=== PATIENT | male | born 1985 ===

== ENCOUNTER 2021-09-20 00:01 | Emergency (ER) | payer SELFPAY ==
[2021-09-20 00:03] VITALS: BP 121/77; PULSE 62; RESP 15; TEMP 36.8; O2SAT 99; BMI 18.8
[2021-09-20] MEDS: Lidocaine HCl 2 % MPF 5 ML VIAL SUBCUT ×2 (00:30)
--- NOTE | 2021-09-20 00:41 | ED.WOUNDLAC ---
HPI - Wound/Laceration General Chief Complaint: Wound/Laceration Stated Complaint: lac hand Time Seen by Provider: 09/20/21 00:26 Source: patient Mode of arrival: ambulatory Limitations: no limitations History of Present Illness HPI narrative: 36-year-old male presenting to the ED with complaints of a laceration to his right hand between his index and thumb finger in the webspace that occurred prior to arrival when he went to go grab a glass cup that broken his hand at work. He denies any other symptoms or complaints related to this. He reports that he is unsure if he is up-to-date on tetanus. He denies any paresthesias or thoughts of foreign bodies or any other symptoms complaints or concerns or injuries at this time. Onset (ago): minute(s) ( Prior to arrival) Extremity Location: right: hand ( between the web spaces of the index and the thumb) Place: work Patient tetanus UTD: No Context: accidental Associated symptoms: none Treatments prior to arrival: bandage Related Data Previous Rx's Medication Instructions Recorded acetaminophen 300 mg-codeine 30 mg 1 tab PO Q8H PRN #14 tab 09/20/21 tablet cephalexin 500 mg capsule 500 mg PO Q6H 10 Days #40 cap 09/20/21 Allergies Allergy/AdvReac Type Severity Reaction Status Date / Time No Known Allergies Allergy Unverified 06/23/20 17:26 Review of Systems Review of Systems: Constitutional : No Fever, No Chills, Cardiovascular : No Chest Pain, No SOB Respiratory : No Dyspnea Gastrointestinal : No abdominal pain Musculoskeletal : No Joint Swelling Skin : positive skin laceration, No Foreign bodies, No rash, No surrounding erythema Neuro : No Weakness, No Numbness/tingling Psych : No SI/HI/thoughts of self injury Yes all other systems are reviewed and are negative [facility]LY [facility] Past Medical History Attestation statement: The following information was validated with the patient. Medical History Asthma Surgical History No history of previous surgery Social History Social History Advance Directives: No Advance Directives Information Provided: No Physical Exam Vital Signs: Vital Signs: Last Vital Signs Temp 98.2 F 09/20/21 00:03 Pulse 62 09/20/21 00:03 Resp 15 09/20/21 00:03 BP 121/77 09/20/21 00:03 Pulse Ox 99 09/20/21 00:03 BMI result Body Mass Index 18.8 vital signs have been reviewed as normal and appeared to be correct. Blood pressure normal Heart rate normal. Respiration rate normal. Temperature normal. Oxygen saturation normal. Appearance: Alert. Oriented X3. No acute distress. Head: Normal external exam. Normocephalic. Atraumatic. Eyes: PERRLA. EOMI. Conjunctiva and sclera normal. Eyelids normal. ENT: Pharynx normal. Uvula midline. Moist mucous membranes. Neck: Normal inspection. Neck supple. FROM. CVS: Normal heart rate and rhythm. Respiratory: No respiratory distress. Painless inspiration. Skin: Skin warm and dry. Normal skin color. Normal skin turgor. patient with 3 cm intermediate laceration to the right hand at the webspace between the thumb and the index finger no foreign bodies or active bleeding or surrounding erythema or purulent drainage. No obvious ligamentous or tendon injury. He has full range of motion of all finger/wrist joint. Otherwise no additional rashes/lesions/lacerations noted. Extremities: see above otherwise all other Extremities exhibit normal range of motion and nontender. Neuro: Oriented X 3. No motor deficit. No sensory deficit. Reflexes normal. Normal steady gait. No focal neuro deficits noted. Vascular: + radial pulses/+ 2 distal pedal pulses/+2 dorsalis pedis b/l. Normal cap refill. No cyanosis noted to upper extremity nails and lower extremity toes nails. Course Course Course Narrative: 36-year-old male presenting to the ED with intermediate 3 cm laceration to his right hand between the was patient of the index and thumb finger. Patient now status post laceration repair with 6 sutures placed. Patient tolerated procedure well. No complications. Tetanus updated. Will DC home with symptomatic treatment instructions return if any new or worsening symptoms and to follow up with primary care provider and to return in 10 days for suture removal and to follow up with [facility]. Patient understands agrees with this plan. Procedures Laceration Laceration 1: Site: hand Side (If applicable): right Size (cm): 3 Description: linear Depth: simple, single layer Local Anesthetic: lidocaine 2% Amount of anesthesia used (mL): 7 Pre-repair: wound explored, irrigated extensively and deep structures intact Skin layer closed with: nylon Size (cm): 4-0 Number of sutures: 6 Technique: simple, interrupted Discharge Plan Discharge Clinical Impression: Laceration, Work related injury Patient Disposition: Home, Self-Care Instructions: Laceration (ED), Return to Work Instructions (ED) Prescriptions: New acetaminophen-codeine 300-30 mg tablet 1 tab PO Q8H PRN (Reason: pain) Qty: 14 RF: 0 cephalexin 500 mg capsule 500 mg PO Q6H 10 Days Qty: 40 RF: 0 Referrals: [facility] [Provider Group] - 2 days Briseida Vaca PA [Emergency Midlevel Provider] - 10 days (for suture removal ) Stand Alone Forms: Work/School Release Print Language: [place]
[2021-09-20] MEDS: Diphth,Pertus(ACell),Tet Adult 0.5 ML SYRINGE IM (00:58)
== END 2021-09-20 01:00 | disposition home or self-care (01) ==
PROVIDERS: Emergency Provider Emergency Medicine Emergency Medical Services
DX: S61.411A Laceration without foreign body of right hand, initial encounter (principal); W25.XXXA Contact with sharp glass, initial encounter; Y93.9 Activity, unspecified; Y92.9 Unspecified place or not applicable; Y99.0 Civilian activity done for income or pay
CPT/HCPCS: 12002; 90471; 90715; 99284

== ENCOUNTER 2021-10-11 13:46 | Emergency (ER) | payer OTHER, SELFPAY ==
[2021-10-11 17:15] VITALS: BP 121/63; PULSE 80; RESP 18; TEMP 36.9; O2SAT 97; BMI 20.3
[2021-10-11 17:48] LABS: COVID-19 Test Negative (Negative)
--- NOTE | 2021-10-11 17:56 | ED.GENADULT ---
HPI - General Adult General Chief complaint: General Medical Stated complaint: stitch removal Time Seen by Provider: 10/11/21 17:44 Source: patient Mode of arrival: ambulatory Limitations: no limitations History of Present Illness HPI narrative: 36-year-old male presenting for suture removal. He had 6 sutures placed in the webspace of his right thumb and index finger on 09/20. He reports ongoing pain at the area but no redness, drainage. He also reports nasal discharge and congestion as well as some generalized malaise. He would like a COVID test. He reports a lot of the same numbers are feeling tired over work in themselves. He denies any shortness of breath or fevers. Not back MD complaint: Suture removal in COVID test Radiation: non-radiation Severity: mild Quality: aching Pain Consistency: intermittent Relieving factors: none Exacerbating factors: none Associated symptoms: denies other symptoms Treatments prior to arrival: none Related Data Previous Rx's Medication Instructions Recorded acetaminophen 300 mg-codeine 30 mg 1 tab PO Q8H PRN #14 tab 09/20/21 tablet cephalexin 500 mg capsule 500 mg PO Q6H 10 Days #40 cap 09/20/21 Allergies Allergy/AdvReac Type Severity Reaction Status Date / Time No Known Allergies Allergy Verified 10/11/21 17:15 Review of Systems Review of Systems: Constitutional: No Fever, No Chills ENT/Mouth: No sore throat, No Rhinorrhea, No Swallowing Difficulty, +nasal congestion Cardiovascular: No Chest Pain, No SOB Respiratory: No Cough, No Sputum Gastrointestinal: No Nausea, No Vomiting, No abdominal Pain Genitourinary: No Dysuria, No Urinary Frequency, No Hematuria Musculoskeletal: No joint pain, No Myalgias Skin: + Skin Lesions, No rash Neuro: No Headache Heme/Lymph: No Lymphadenopathy PMFSH Past Medical History Medical History Asthma Surgical History No history of previous surgery Social History Social History Advance Directives: No Advance Directives Information Provided: No Physical Exam Vital Signs: Vital Signs: Last Vital Signs Temp 98.4 F 10/11/21 17:15 Pulse 80 10/11/21 17:15 Resp 18 10/11/21 17:15 BP 121/63 10/11/21 17:15 Pulse Ox 97 10/11/21 17:15 BMI result Body Mass Index 20.3 Appearance: Alert. Oriented X3. No acute distress. HEENT: normal inspection CVS: Normal heart rate and rhythm. Pulses normal. Respiratory: No respiratory distress. Skin: Skin warm and dry. Normal skin color. Normal skin turgor. No rashes. Extremities: Right hand with a well-healing wound between the webspace of the thumb and the index finger. There is some skin overgrowth over the sutures with no signs of infection. No surrounding erythema or drainage. normal ROM all the fingers. NV intact distally. Neuro: Oriented X 3. Grossly normal, nonfocal. Course Course Course Narrative: 36-year-old male here for suture removal and COVID test. His sutures have been placed for over 3 weeks. They were successfully removed with suture removal kit. No evidence of infection. His rapid COVID is negative. Patient counseled to get retested in the next few days if he is still having symptoms and isolate at home. Stable for discharge home. Medical Decision Making Lab Data Labs: Lab Results 10/11/21 Range/Units 17:24 COVID-19 ([facility]IA) Negative (Negative) COVID-19 Clin Com See Note Discharge Plan Discharge Clinical Impression: Encounter for removal of sutures Patient Disposition: Home, Self-Care Instructions: Stitches Removal (ED) Prescriptions: No Action acetaminophen-codeine 300-30 mg tablet 1 tab PO Q8H PRN (Reason: pain) Qty: 14 RF: 0 cephalexin 500 mg capsule 500 mg PO Q6H 10 Days Qty: 40 RF: 0 Interventions: ED Discharge Assessment Last Done: 10/11/21 18:04
== END 2021-10-11 19:56 | disposition home or self-care (01) ==
PROVIDERS: Emergency Provider Emergency Medicine Emergency Medical Services
DX: Z48.02 Encounter for removal of sutures (principal); Z20.822 Contact with and (suspected) exposure to COVID-19
CPT/HCPCS: 87635; 99283

== ENCOUNTER 2023-03-07 19:17 | Emergency (ER) | payer BC, SELFPAY ==
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
[2023-03-07 20:23] VITALS: BP 115/75; PULSE 73; RESP 16; TEMP 36.9; O2SAT 97; BMI 17.2
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
== END 2023-03-07 21:58 | disposition home or self-care (01) ==
PROVIDERS: Emergency Provider Emergency Medicine
DX: S93.401A Sprain of unspecified ligament of right ankle, initial encounter (principal); M54.50 Low back pain, unspecified; M25.571 Pain in right ankle and joints of right foot; V29.401A Electric (assisted) bicycle driver injured in collision with unspecified motor vehicles in traffic accident, initial encounter; Y93.9 Activity, unspecified; Y92.410 Unspecified street and highway as the place of occurrence of the external cause; Y99.9 Unspecified external cause status; Z79.899 Other long term (current) drug therapy
CPT/HCPCS: 72100; 73610; 73630; 99283

== ENCOUNTER 2023-08-14 15:13 | Emergency (ER) | payer BC, SELFPAY ==
[2023-08-14 15:25] VITALS: BP 127/75; PULSE 101; RESP 20; TEMP 37.2; O2SAT 100; BMI 17.2
[2023-08-14 16:21] LABS: Influenza A PCR NEGATIVE (Negative); Influenza B PCR NEGATIVE (Negative); Resp Syncy Virus RNA Qual PCR NEGATIVE (Negative); SARS COV2 PCR INHOUSE POSITIVE (Negative)
[2023-08-14 17:55] VITALS: BP 111/79; PULSE 90; RESP 18; TEMP 38.2; O2SAT 98
--- NOTE | 2023-08-14 18:02 | ED.URI ---
HPI - URI/Sore Throat General Chief Complaint: Upper Respiratory Symptoms Stated Complaint: headache, fever Time Seen by Provider: 08/14/23 18:15 Source: patient and RN notes reviewed Mode of arrival: ambulatory Limitations: no limitations History of Present Illness HPI Narrative: This is a 38-year-old male presenting to the emergency department for evaluation of headache, fevers and chills x3 days. Patient has no sore throat, ear pain, chest pain or shortness of breath. No abdominal pain, nausea, vomiting or diarrhea. He has been taking TheraFlu with some relief. He has been eating out recently, no known sick contacts. No other complaints or concerns at this time. MD elicited complaint: fever, cough, rhinorrhea and nasal congestion Onset (ago): day(s) Consistency: constant Description of mucous: clear Able to tolerate fluids by mouth: Yes Exacerbating factors: nothing Relieving factors: nothing Context: sick contacts Associated symptoms: denies other symptoms Treatments prior to arrival: none Related Data Previous Rx's Medication Instructions Recorded acetaminophen 300 mg-codeine 30 mg 1 tab PO Q8H PRN pain #14 tabs 09/20/21 tablet cephalexin 500 mg capsule 500 mg PO Q6H 10 days #40 caps 09/20/21 acetaminophen 500 mg tablet 500 mg PO Q6H PRN pain #30 tabs 08/14/23 (Tylenol Extra Strength) ibuprofen 600 mg tablet 600 mg PO Q6H PRN fever or pain 08/14/23 #45 tabs Allergies Allergy/AdvReac Type Severity Reaction Status Date / Time No Known Allergies Allergy Verified 03/07/23 20:29 Review of Systems Review of Systems: Yes all other systems are reviewed and are negative Constitutional: Constitutional: Reports as per [facility] Past Medical History Attestation statement: The following information was validated with the patient. Medical History Asthma Surgical History No history of previous surgery Physical Exam Vital Signs: Vital Signs: Last Vital Signs Temp 100.7 F H 08/14/23 17:55 Pulse 90 08/14/23 17:55 Resp 18 08/14/23 17:55 BP 111/79 08/14/23 17:55 Pulse Ox 98 08/14/23 17:55 O2 Del Method Room Air 08/14/23 17:55 BMI result Body Mass Index 17.2 Const: General: cooperative, comfortable and no acute distress Orientation/consciousness: patient oriented x3 Limitations: no limitations HEENT: Head: Yes normal to inspection, Yes normocephalic and Yes atraumatic Ears: hearing grossly normal bilaterally General nose exam: Normal external nose present Face and sinus: Yes normal facial exam Mouth: Normal oral and palatal mucosa present, oropharynx normal and moist mucous membranes Throat: Yes posterior oropharynx normal Eyes: General: appearance normal, both eyes and all related structures Eyelids: Yes eyelids normal Conjunctivae: conjunctivae normal Sclerae: sclerae normal Pupils: Equal, round and reactive pupils present EOM: EOMs intact bilaterally Neck: Neck: Yes normal visual inspection, Yes full ROM and Yes no lymphadenopathy Lymphatic: no lymphadenopathy noted Chest: Chest palpation & inspection: normal inspection of the chest Resp: Effort & Inspection: normal respiratory effort and able to speak in complete sentences Auscultation: clear to auscultation bilaterally, no crackles, no rales, no rhonchi and no wheezes Cardio: Rate: regular rate Rhythm: regular rhythm Heart sounds: S1 normal heart sound present and S2 normal heart sound present GI: Inspection: Yes normal to inspection Skin: General skin exam: no rashes or lesions noted Trauma: no lacerations or abrasions Wounds: no wounds Neuro: General: patient oriented x3 and moves all extremities Cranial nerves: Yes Equal, round and reactive pupils present Extrem: General: Yes normal to inspection Right upper extremity: normal to inspection Left upper extremity: normal to inspection Right lower extremity: normal to inspection Left lower extremity: normal to inspection Medications Administered Discontinued Medications Generic Name Dose Route Start Last Admin Trade Name Freq PRN Reason Stop Dose Admin Acetaminophen 975 mg 08/14/23 18:10 08/14/23 18:13 Acetaminophen 325 Mg Tablet PO 08/14/23 18:11 975 mg ONCE ONE Administration Medical Decision Making Differential Diagnosis Differential Diagnoses: The differential diagnosis associated with the presentation includes Admission/Observation Consideration of admission/observation: Escalation of care including admission/observation considered Lab Data MDM Lab Attestation statement: I reviewed the patient's lab results. Labs: Lab Results 08/14/23 Range/Units 15:38 Influenza Type A (PCR) NEGATIVE (Negative) Influenza Type B (PCR) NEGATIVE (Negative) RSV RNA Qual (PCR) NEGATIVE (Negative) SARS-CoV-2 RNA (RT-PCR) POSITIVE A (Negative) Radiology Impression Discussion of test interpretation with radiology: I have reviewed the radiologist's reading. External Record Review External record reviewed: Inpatient record, Office record, Outpatient record, Prior outpatient labs, Prior outpatient radiology, Primary care record and Outside ED record Discharge Plan Discharge Clinical Impression: COVID-19 Patient Disposition: Home, Self-Care Additional Instructions: You tested positive for COVID today. Please drink plenty of fluids get plenty of rest. Take ibuprofen and/or Tylenol as needed for pain, fevers and symptoms Any new or worsening symptoms occur, including chest pain or shortness of breath, please return for re-evaluation. Prescriptions: New ibuprofen 600 mg tablet 600 mg PO Q6H PRN (Reason: fever or pain) Qty: 45 0RF acetaminophen [Tylenol Extra Strength] 500 mg tablet 500 mg PO Q6H PRN (Reason: pain) Qty: 30 0RF No Action acetaminophen-codeine 300-30 mg tablet 1 tab PO Q8H PRN (Reason: pain) Qty: 14 0RF cephalexin 500 mg capsule 500 mg PO Q6H 10 Days Qty: 40 0RF Stand Alone Forms: Work/School Release
[2023-08-14] MEDS: Acetaminophen 325 MG TABLET 975 MG PO (18:13)
== END 2023-08-14 18:25 | disposition home or self-care (01) ==
LOC: HO.ED 18:24
PROVIDERS: Emergency Provider Emergency Medicine
DX: U07.1 COVID-19 (principal); R51.9 Headache, unspecified; R50.9 Fever, unspecified; Z79.899 Other long term (current) drug therapy
CPT/HCPCS: 0241U; 99283

== ENCOUNTER 2024-01-03 19:53 | Emergency (ER) | payer BC, SELFPAY ==
--- NOTE | ~2024-01-03 | XR_ITS ---
EXAMINATION: XR ANKLE, RIGHT CLINICAL INFORMATION: Pain. COMPARISON: Radiograph right ankle 03/07/2023. TECHNIQUE: AP, lateral, and mortise views of the right ankle. FINDINGS: New avulsion fracture along the inferior and lateral surface of the calcaneus best visualized on the oblique view with surrounding soft tissue swelling. No additional fractures. Ankle mortise is maintained. XR/XR ankle RT 2V IMPRESSION: New avulsion fracture along the inferior and lateral surface of the calcaneus.
[2024-01-03 20:03] VITALS: BP 142/86; PULSE 90; O2SAT 99
[2024-01-03 21:07] VITALS: BP 128/80; PULSE 84; RESP 18; TEMP 37.2; O2SAT 98; BMI 20.4
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
--- NOTE | 2024-01-03 23:56 | PC.NURSE ---
aldair dykes at bedside applying splint to pt right ankle
[2024-01-04 00:03] VITALS: BP 134/64; PULSE 93; RESP 15; TEMP 36.7; O2SAT 96
== END 2024-01-04 00:10 | disposition home or self-care (01) ==
PROVIDERS: Emergency Provider Internal Medicine
DX: S92.001A Unspecified fracture of right calcaneus, initial encounter for closed fracture (principal); V28.49XA Other motorcycle driver injured in noncollision transport accident in traffic accident, initial encounter; Y93.9 Activity, unspecified; Y92.410 Unspecified street and highway as the place of occurrence of the external cause; Y99.9 Unspecified external cause status; M79.671 Pain in right foot
CPT/HCPCS: 73600; 99283; 99284

== ENCOUNTER 2024-01-10 09:47 | Outpatient (AMB) | payer BC, SELFPAY ==
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
[2024-01-10 10:02] VITALS: BMI 20.4
== END 2024-01-10 11:22 | disposition home or self-care (01) ==
PROVIDERS: Visit Provider Physician Assistant
DX: S92.001A Unspecified fracture of right calcaneus, initial encounter for closed fracture (principal)
CPT/HCPCS: 99203

== ENCOUNTER → 2024-01-10 09:47 | Outpatient (BNVA) | payer BC, SELFPAY | PROVIDERS: Visit Provider Physician Assistant ==

== ENCOUNTER 2024-02-03 07:29 | Outpatient (REF) | payer OTHER, BC, SELFPAY ==
--- NOTE | ~2024-02-03 | CT_ITS ---
EXAMINATION: CT FOOT WITHOUT CONTRAST, RIGHT CLINICAL INFORMATION: Calcaneal fracture. COMPARISON: Most recent right ankle radiographs dated 01/03/2024. TECHNIQUE: Contiguous axial CT images of the right foot were obtained without contrast. Multiplanar reformats were provided and reviewed. This CT examination was performed using dose optimization techniques as appropriate, variously including the following: *Automated exposure control *Adjustment of mA and/or kV according to patient size (this includes techniques or standardized protocols for targeted exams where dose is matched to indication/reason for exam; i.e. extremities or head) *Use of iterative reconstruction technique DLP: 142 mGy-cm FINDINGS: There is a mildly displaced fracture through the posterolateral calcaneal tubercle with the resultant fracture fragment measuring approximately 0.8 x 0.7 cm (AP by ML). Cortical step-off measures up to 0.4 cm in greatest dimension. Findings correspond to the prior radiographs. No additional fracture or dislocation. The ankle mortise is maintained. No joint space narrowing or marginal osteophytes. No talar osteochondral lesion. No abnormal soft tissue mass or fluid collection. Subcutaneous edema along the posterolateral aspect of the calcaneus without organized fluid collection. The visualized flexor and extensor tendons are grossly intact; however, evaluation is limited on CT examination. CT/CT foot RT wo IV con IMPRESSION: 1. Mildly displaced fracture through the posterolateral calcaneal tubercle with a resultant fracture fragment measuring up to 0.8 cm. Cortical step-off measures up to 0.4 cm. Findings correspond to the prior radiographs. 2. No additional fracture or dislocation. 3. Subcutaneous edema along the posterolateral aspect of the calcaneus without organized fluid collection.
== END 2024-02-03 07:30 | disposition home or self-care (01) ==
LOC: HO.CT 07:29
PROVIDERS: Visit Provider Physician Assistant
DX: S92.001A Unspecified fracture of right calcaneus, initial encounter for closed fracture (principal)
CPT/HCPCS: 73700

== ENCOUNTER 2024-02-10 12:29 | Outpatient (REF) | payer OTHER, BC, SELFPAY ==
--- NOTE | ~2024-02-10 | XR_ITS ---
EXAMINATION: XR CALCANEUS, RIGHT CLINICAL INFORMATION: Fracture of right calcaneus. COMPARISON: X-rays of the right ankle December 2023. CT scan right foot January 2024. TECHNIQUE: Lateral and axial views of the right calcaneus were obtained. FINDINGS: The fracture of the of the lateral plantar aspect the calcaneal tuberosity is barely if at all conspicuous. There is some subtle cortical irregularity on the axial view of the calcaneus. The remaining bones joints soft tissues are unremarkable. XR/XR calcaneus RT min 2V IMPRESSION: 1. Fracture of the calcaneal tuberosity barely conspicuous on the current x-ray. This is likely due to projection rather than interval healing of the fracture given the short time frame between the CT and this x-ray.
== END 2024-02-10 12:30 | disposition home or self-care (01) ==
LOC: HO.HOSX 12:29
PROVIDERS: Visit Provider Physician Assistant
DX: S92.001D Unspecified fracture of right calcaneus, subsequent encounter for fracture with routine healing (principal)
CPT/HCPCS: 73650

== ENCOUNTER 2024-02-10 12:56 | Outpatient (AMB) | payer BC, SELFPAY ==
[2024-02-10 13:05] VITALS: BMI 20.4
--- NOTE | 2024-02-10 13:05 | A.OFFVIS_ITS ---
Vital Signs 02/10/24 13:05 Height 5 ft 7 in Weight 130 lb BMI 20.4 Intake Visit Reasons: ov-right calcaneal avulsion fracture 12/30/23 Intake Note: Tyler is a 39 year old male, who presents today for CT scan review and follow up on right calcaneal avulsion fracture, 12/30/23. Patient reports he only experiences pain when he lays down, 2-3 on a 0-10 pain scale. Patient shared he is very scared to put weight on his foot even when wearing the boot. Patient was visibly limping today. Production Support Specialist Required: No Accompanied by: Self / Same As Patient Allergies No Known Allergies Allergy (Verified 02/10/24 13:06) HPI HPI ov-right calcaneal avulsion fracture 12/30/23: Details: 39-year-old male who returns to the office today for a follow-up of right calcaneus fracture, 12/30/23. He continues to have pain in his ankle which is aggravated at night. He is wearing the boot as instructed. He has no other concerns today. [facility] Medical History Asthma Surgical History No history of previous surgery Review of Systems Const All systems reviewed & are unremarkable except as noted in HPI and below Physical Exam Vital Signs: BMI result Body Mass Index 20.4 Const General: cooperative, healthy appearing, comfortable, no acute distress, well developed and alert Orientation/consciousness: patient oriented x3 HEENT Head: Yes normal to inspection, Yes normocephalic and Yes atraumatic Eyes General: appearance normal, both eyes and all related structures Resp Effort & Inspection: normal respiratory effort and able to speak in complete sentences Cardio Rate: regular rate Peripheral pulses: Peripheral pulses 2+ throughout GI Palpation (GI): Soft to palpation Skin Lesions: no lesions Rashes: no rashes Neuro General: patient oriented x3 Extrem Other: Right foot: Normal to inspection. No open wound, no foul odor, or drainage. He has no tenderness over the medial aspect of calcaneus and there is no bruising or swelling along the foot. No pain over the malleolus or lateral aspect of the foot. NVI. Results Reviewed Results Reviewed: CT foot RT wo IV con IMPRESSION: 1. Mildly displaced fracture through the posterolateral calcaneal tubercle with a resultant fracture fragment measuring up to 0.8 cm. Cortical step-off measures up to 0.4 cm. Findings correspond to the prior radiographs. 2. No additional fracture or dislocation. 3. Subcutaneous edema along the posterolateral aspect of the calcaneus without organized fluid collection. Assessment & Plan Assessment & Plan (1) Calcaneus fracture, right: Code(s): S92.001A - Unspecified fracture of right calcaneus, initial encounter for closed fracture Category: Medical Qualifiers: Encounter type: subsequent encounter Calcaneus location: unspecified portion of calcaneus Fracture type: closed Fracture alignment: nondisplaced Fracture healing: with routine healing Qualified Code(s): S92.001D - Unspecified fracture of right calcaneus, subsequent encounter for fracture with routine healing Plan He can begin transitioning to a regular street shoe as long as he is pain free. We did try it in the office where he was standing barefoot and had no pain. He will also begin a course of physical therapy to work on ROM, gentle strengthening, gait training and proprioceptive training. 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 I would like to see him back in 6 weeks with new x-rays, sooner if needed. Orders: Orders XR calcaneus RT min 2V Today S92.001A - Unspecified fracture of right calcaneus, initial encounter for closed fracture PT Evaluation and Treatment Today S92.001A - Unspecified fracture of right calcaneus, initial encounter for closed fracture Patient Instructions: Scribed for Darryl Molina PA-C, by Lucien Wing manager medical affairs, on 02/10/2024 at 1:00 PM EST. IDarryl PA-C, have personally reviewed and agree with the information entered by the scribe. Coding Level of Care Code Global (74561) Diagnoses Closed nondisplaced fracture of right calcaneus with routine healing, unspecified portion of calcaneus, subsequent encounter S92.001D Encounter type: subsequent encounter Calcaneus location: unspecified portion of calcaneus Fracture type: closed Fracture alignment: nondisplaced Fracture healing: with routine healing
== END 2024-02-10 13:45 | disposition home or self-care (01) ==
PROVIDERS: Visit Provider Physician Assistant
DX: S92.001D Unspecified fracture of right calcaneus, subsequent encounter for fracture with routine healing (principal)
CPT/HCPCS: 99213

== ENCOUNTER 2024-03-23 12:58 | Outpatient (REF) | payer BC, SELFPAY ==
--- NOTE | ~2024-03-23 | XR_ITS ---
EXAMINATION: XR CALCANEUS, RIGHT CLINICAL INFORMATION: Calcaneal fracture COMPARISON: Radiographs 02/10/2024. CT 02/03/2024. TECHNIQUE: Lateral and axial views of the right calcaneus were obtained. FINDINGS: Previously demonstrated fractures of the lateral process of the calcaneal tuberosity and the anteriormost aspect at the calcaneocuboid joint are no longer apparent. XR/XR calcaneus RT min 2V IMPRESSION: Previously demonstrated fractures of the lateral process of the calcaneal tuberosity and anteriormost aspect at the calcaneocuboid joint are no longer apparent.
== END 2024-03-23 12:59 | disposition home or self-care (01) ==
LOC: HO.HOSX 12:58
PROVIDERS: Visit Provider Physician Assistant
DX: S92.001A Unspecified fracture of right calcaneus, initial encounter for closed fracture (principal)
CPT/HCPCS: 73650

== ENCOUNTER 2024-03-23 13:37 | Outpatient (AMB) | payer BC, SELFPAY ==
--- NOTE | 2024-03-23 13:52 | MHC.OFFVIS ---
Vital Signs 03/23/24 13:59 Height 5 ft 7 in Weight 130 lb BMI 20.4 Intake Visit Reasons: OV-f/u Rt calcaneus fx w xrays Intake Note: Michele 39 year old male, who presents today for a follow up on his right calcaneal avulsion fracture, DOI 12/30/23. Patient reports he is doing, he continues to work with PT. States improvement since injury however he is nervous that he will re-injure. Allergies No Known Allergies Allergy (Verified 03/23/24 13:58) HPI HPI OV-f/u Rt calcaneus fx w xrays: Details: 39-year-old male who returns to the office today for a follow-up of right calcaneus fracture, 12/30/23. He states he has improvement in his injury and denies any pain however he is nervous that he will reinjure and therefore not ambulating. He continues to work on physical therapy as instructed. He has no other concerns today. [facility] Medical History Asthma Surgical History No history of previous surgery Review of Systems Const All systems reviewed & are unremarkable except as noted in HPI and below Physical Exam Vital Signs: BMI result Body Mass Index 20.4 Const General: cooperative, healthy appearing, comfortable, no acute distress, well developed and alert Orientation/consciousness: patient oriented x3 HEENT Head: Yes normal to inspection, Yes normocephalic and Yes atraumatic Eyes General: appearance normal, both eyes and all related structures Resp Effort & Inspection: normal respiratory effort and able to speak in complete sentences Cardio Rate: regular rate Peripheral pulses: Peripheral pulses 2+ throughout GI Palpation (GI): Soft to palpation Skin Lesions: no lesions Rashes: no rashes Neuro General: patient oriented x3 Extrem Other: Right foot: Normal to inspection. He has no tenderness over the medial aspect of calcaneus and there is no bruising or swelling along the foot. No pain over the malleolus or lateral aspect of the foot. NVI. Results Reviewed Results Reviewed: Xrays were obtained in the office today and personally reviewed by me of the right calcanes show healed fracture Assessment & Plan Assessment & Plan (1) Calcaneus fracture, right: Code(s): S92.001A - Unspecified fracture of right calcaneus, initial encounter for closed fracture Category: Medical Qualifiers: Calcaneus location: unspecified portion of calcaneus Encounter type: subsequent encounter Fracture alignment: nondisplaced Fracture healing: with routine healing Fracture type: closed Qualified Code(s): S92.001D - Unspecified fracture of right calcaneus, subsequent encounter for fracture with routine healing Plan He will increase activities as tolerated. I did give him a lace up aso to help with support while returning to work. I also gave him a latter stating I have been treating him since January 09 until today, March 23 and he has been out of work since his injury. He will work on physical therapy and increase activities as tolerated. He will see me back as needed. Orders: Orders XR calcaneus RT min 2V Today S92.001A - Unspecified fracture of right calcaneus, initial encounter for closed fracture Patient Instructions: Scribed for Darryl Molina PA-C, by Lucien Wing medical assisting program director, on 03/23/2024 at 1:30 PM EST.? I, Darryl Molina PA-C, have personally reviewed and agree with the information entered by the scribe. Coding Level of Care Code Global (78693) Diagnoses Closed nondisplaced fracture of right calcaneus with routine healing, unspecified portion of calcaneus, subsequent encounter S92.001D Calcaneus location: unspecified portion of calcaneus Encounter type: subsequent encounter Fracture alignment: nondisplaced Fracture healing: with routine healing Fracture type: closed
[2024-03-23 13:59] VITALS: BMI 20.4
== END 2024-03-23 15:09 | disposition home or self-care (01) ==
PROVIDERS: Visit Provider Physician Assistant
DX: S92.001D Unspecified fracture of right calcaneus, subsequent encounter for fracture with routine healing (principal)
CPT/HCPCS: 99213

== ENCOUNTER 2024-04-15 10:00 | Outpatient (RCR) | payer OTHER, BC, SELFPAY ==
--- NOTE | 2024-02-25 13:57 | MHC.PT.EP ---
[facility] [place] Office [place] Office [place] Office [address] [phone] F: [phone] F: [phone] F: [phone] F: [phone] Physical Therapy Plan of Care Date of Evaluation: 02/25/24 Date of Surgery: Diagnosis: RIGHT ankle calcaneal fracture Assessment: Patient is a pleasant 39 y.o. male who is referred to PT by Darryl Molina PA-C with Dx of RIGHT calcaneal fracture. He did not require surgery., was placed in a tall walking boot. Patient impairments include pain, healing incision sites, limited ROM, weakness, antalgic gait, impaired balance. Patient current functional limitations are walking, running, standing, bending, balance, stair use. Patient will benefit from skilled PT to address aforementioned impairments and functional limitations to meet established goals. Frequency and Duration: The patient will be seen 2x/week for 4 weeks Short Term Goals: 2 weeks Patient demonstrates consistency and independence with HEP to self manage symptoms. Half-Way Goals: 4 weeks Patient presents with increased ankle DF 5 degrees to be able to restore ambulation rocker without antalgic gait with regular shoe. Patient presents wht increased ankle inv/ev 4+/5 to be able to squat without pain or compensations for work tasks. Treatment Plan: Modalities to reduce pain, spasms and effusion. Manual therapy to restore motion and function. Therapeutic exercise to improve strength and flexibility. Neuromuscular re-education for posture and balance. Therapeutic activities to return to functional activities of daily living. Electronically signed by: Jayden Lomeli, PT, DPT Please sign and return to therapist. Thank you for your referral.
--- NOTE | 2024-06-02 09:48 | MHC.PT.DC ---
[facility] [place] Office [place] Office [place] Office [address] Marlon Helm [address] [facility] [place] [phone] F: [phone] F: [phone] F: [phone] F: [phone] Physical Therapy Discharge Report Diagnosis: RIGHT ankle calcaneal fracture Date of Surgery: Date of Evaluation: 02/25/24 Date of Discharge: 06/02/24 Treatments to Date: 12 Cancellations to Date: 1 No Shows to Date: 1 Discharge Status: Independent with HEP Patient Elected to Stop Discharge Summary: Tyler did well with PT and was returning to work. He last PT session was 04/15/24 and the assessment reads, Tyler presents with normalized gait pattern today, heel strike occurring for initial contact and weight shifting appropriately. He does well with advancement of exercises on uneven surfaces without pain complaints in foot or ankle. He ceased attending PT on his own accord after that visit and is therefore discharged from PT. Electronically signed by: Jayden Lomeli, PT, DPT Please sign and return to therapist. Thank you for your referral.
== END 2024-06-02 09:48 | disposition home or self-care (01) ==
LOC: HO.PT 10:00
PROVIDERS: Visit Provider Physician Assistant
DX: S92.001D Unspecified fracture of right calcaneus, subsequent encounter for fracture with routine healing (principal)
CPT/HCPCS: 97110; 97112; 97116; 97161; 97530

== ENCOUNTER 2025-10-01 15:52 | Emergency (ER) | payer BC, SELFPAY ==
[2025-10-01 16:29] VITALS: BP 129/70; PULSE 100; RESP 18; TEMP 37.1; O2SAT 99; BMI 21.9
--- OUTSIDE RECORDS SUMMARY | 2025-10-01 16:51 | XMS_ITS | Clinical Summary ---
Author Organization [employer] Address [address] [place] [address] Care Team Providers Care Electron Gun Inspector Name Role Phone Unavailable Primary Care Provider Unavailabl e Allergies No known active allergies Medications No known medications Active Problems No known active problems Encounters Date Type Department Care Team Description 08/27/2025 Telephone [facility] [address] [place] [address] Elli Sandoval, DDS 08/02/2025 2:15 PM EDT Office Visit [facility] [address] [place] [address] Janay An Subgingival dental calculus (Primary Dx); Supragingival dental calculus; Dental plaque; Periodontal disease; Encounter for dental examination 07/29/2025 1:00 PM EDT Office Visit [facility] [address] [place] [address] Elli Sandoval, DDS Dental calculus (Primary Dx); Gingival swelling from Last 3 Months Social History Tobacco Use Types Packs/Day Years Used Date Smoking Tobacco: Never Assessed Sex and Gender Information Value Date Recorded Sex Assigned at Male 08/06/2022 10:15 AM EDT Legal Sex Male 10:15 AM EDT Gender Identity Male 07/29/2025 8:37 AM EDT Sexual Orientation Straight 07/29/2025 8: 37 AM EDT Last Filed Vital Signs Vital Sign Reading Time Taken Comments Blood Pressure 139/83 08/02/2025 2:16 PM EDT Pulse - - Temperature - - Respiratory Rate - - Oxygen Saturation - - Inhaled Oxygen Concentration - - Weight - - Height - - Body Mass Index - - Plan of Treatment Health Maintenance Due Date Last Done Comments Depression Screening 1985 HIV Screening 1985 Lipid Panel 1985 SDOH Screening 1985 Disability Screening 1985 Alcohol/Substance Use Screening 1997 Tobacco Screening 1997 Family Planning (PISQ) 01/03/2000 HPV Vaccines (1 - Male 3-dos e series) 01/03/2000 Hepatitis C Screening 2003 Hepatitis B Vaccines (2 of 3 - 19+ 3-dose series) 09/04/2006 08/07/2006 Dental Prophylaxis 10/21/2011 04/19/2011 COVID-19 Vaccine (3 - 2024-2 6 season) 2025 04/21/2021, 03/22/2021 Influenza Vaccine (#1) 2025 10/25/2011 Dental Oral Exam 02/01/2026 08/02/2025 Dental X-Ray: Bitewings 08/03/2026 08/02/20 25, 04/19/2011 Dental X-Ray: Full Mouth 08/03/2028 025, 04/19/2011 DTaP/Tdap/Td Vaccines (2 - T d or Tdap) 09/20/2031 09/20/2021 Zoster Vaccines (1 of 2) 2035 RSV Patients and Patients Aged 60 years or older (1 - 1-dose 75+ series) 01/03/2060 HIB Vaccines Aged Out No longer eligi ble based on patient's age to complete this topic Hepatitis A Vaccines Aged Out No long er eligible based on patient's age to complete this topic IPV Vaccines Aged Out No longer eligi ble based on patient's age to complete this topic Meningococcal B Vaccine Aged Out No l onger eligible based on patient's age to complete this topic Meningococcal Vaccine Aged Out No leah fredy eligible based on patient's age to complete this topic Pneumococcal Vaccine: Pediatrics (0 to 5 Years) and At-Risk Patients (6 to 49) Years Aged Out No longer eligible b ased on patient's age to complete this topic RSV under 20 months Aged Out No longe r eligible based on patient's age to complete this topic Rotavirus Vaccines Aged Out No longer eligible based on patient's age to complete this topic Procedures Procedure Name Priority Date/Time Associated Diagnosis Comments 17 O AMALGAM FILLING Routine 08/27/2025 12:00 AM EST 21 O AMALGAM FILLING Routine 08/27/2025 12:00 AM EST 20 DO AMALGAM FILLING Routine 08/27/2025 12:00 AM EST 19 MOD AMALGAM FILLING Routine 5 12:00 AM EST 18 O AMALGAM FILLING Routine 08/27/2025 12:00 AM EST 14 MOL AMALGAM FILLING Routine 5 12:00 AM EST 13 MOD AMALGAM FILLING Routine 5 12:00 AM EST 12 MOD AMALGAM FILLING Routine 5 12:00 AM EST COMPREHENSIVE ORAL EVALUATION - NEW OR ESTABLISHED PATIENT Routine 08/02/2025 2:15 PM EDT Subgingival dental calculus Supragingival dental calculus Dental plaque Periodontal disease Encounter for dental examination FULL MOUTH DEBRIDEMENT TO ENABLE A COMPREHENSIVE ORAL EVALUATION AND DIAGNOSIS ON A SUBSEQUENT VISIT Routine 08/02/2025 2:15 PM EDT Subgingival dental calculus Supragingival dental calculus Dental plaque Periodontal disease INTRAORAL - COMPLETE SERIES OF RADIOGRAPHIC IMAGES Routine 08/02/2025 2:15 PM EDT CASE PRESENTATION, DETAILED AND EXTENSIVE TREATMENT PLANNING Routine 08/02/2025 2:15 PM EDT ORAL HYGIENE INSTRUCTIONS Routine 2024 2:15 PM EDT Subgingival dental calculus Supragingival dental calculus Dental plaque Periodontal disease SCALING IN PRESENCE OF MOD-SEVERE GING INFL - FULL MOUTH, AFTER ORAL EVAL Routine 08/02/2025 2:15 PM EDT Subgingival dental calculus Supragingival dental calculus Dental plaque Periodontal disease INTRAORAL - PERIAPICAL FIRST RADIOGRAPHIC IMAGE Routine 07/29/2025 1:00 PM EDT Dental calculus Gingival swelling LIMITED ORAL EVALUATION - PROBLEM FOCUSED Routine 07/29/2025 1:00 PM EDT Dental calculus Gingival swelling PROPHYLAXIS - ADULT Routine 04/19/2011 1 2:00 AM EDT from Last 3 Months or Most Recently Relevant to Health Maintenance Insurance [facility]
--- NOTE | 2025-10-01 16:57 | ED.DENTAL ---
HPI - Dental/Oral General Chief complaint: Dental/Oral Stated complaint: TOOTH PAIN Time Seen by Provider: 10/01/25 16:57 Source: patient, RN notes reviewed and old records reviewed Mode of arrival: ambulatory History of Present Illness ED Provider: Janis Guzmán PA-C HPI Narrative: 40-year-old male with no significant past medical history presenting to the ED complaining of right upper dental pain since yesterday and subjective fever. Denies chills, drainage from area, ear pain, sore throat, difficulty or inability to swallow, recent dental procedures or trauma Related Data Previous Rx's ?Medication ?Instructions ?Recorded acetaminophen 300 mg-codeine 30 mg 1 tab PO Q8H PRN pain #14 tabs 09/20/21 tablet acetaminophen 500 mg tablet 500 mg PO Q6H PRN pain #30 tabs 08/14/23 (Tylenol Extra Strength) ibuprofen 600 mg tablet 600 mg PO Q6H PRN fever or pain 08/14/23 #45 tabs ibuprofen 600 mg tablet 600 mg PO Q6H PRN pain #20 tabs 01/03/24 oxycodone 5 mg tablet 5 mg PO Q6H PRN pain #12 tabs 01/03/24 amoxicillin 875 mg-potassium 1 tab PO BID 7 days #14 tabs 10/01/25 clavulanate 125 mg tablet Allergies Allergy/AdvReac Type Severity Reaction Status Date / Time No Known Allergies Allergy Verified 10/01/25 16:31 Review of Systems Review of Systems: Yes all other systems are reviewed and are negative Constitutional: Constitutional: Reports as per [facility] Past Medical History Attestation statement: The following information was validated with the patient. Source: old records reviewed Medical History Asthma Surgical History No history of previous surgery Social History Social History Advance Directives: No Advance Directives Information Provided: No Do you have a plan to hurt others: No Plan Physical Exam Vital Signs: Vital Signs: Last Vital Signs Temp 98.7 F 10/01/25 16:29 Pulse 100 10/01/25 16:29 Resp 18 10/01/25 16:29 BP 129/70 10/01/25 16:29 Pulse Ox 99 10/01/25 16:29 O2 Del Method Room Air 10/01/25 16:29 BMI result Body Mass Index 21.9 Const: General: cooperative, healthy appearing and no acute distress Orientation/consciousness: patient oriented x3 Limitations: no limitations HEENT: Other: Right upper bicuspid gingival tenderness. No appreciable swelling. No pointing. No fluctuance or induration Head: Yes normal to inspection and Yes atraumatic Ears: hearing grossly normal bilaterally General nose exam: Normal external nose present Face and sinus: Yes normal facial exam Mouth: Normal oral and palatal mucosa present Throat: Yes posterior oropharynx normal, Yes tonsils normal, Yes uvula midline, No peritonsillar mass, No uvula laterally displaced and No uvular edema Eyes: General: appearance normal, both eyes and all related structures EOM: EOMs intact bilaterally Neck: Neck: Yes normal visual inspection and Yes no meningeal signs Resp: Effort & Inspection: normal respiratory effort and no respiratory distress Cardio: Rate: regular rate Skin: Rashes: no rashes Wounds: no wounds Neuro: General: patient oriented x3, tone normal and no meningeal signs Cranial nerves: Yes CN's II-XII intact bilaterally Gait exam (Neuro): Normal gait present Extrem: General: Yes normal to inspection Medical Decision Making Medical Decision Making MDM Narrative: 40-year-old male with no significant past medical history presenting to the ED complaining of right upper dental pain since yesterday and subjective fever. On exam vital signs stable, NAD, nontoxic appearing, physical exam as noted above. Concern for dental infection. No drainable collection/abscess at this time. No evidence of cellulitis. No evidence of [employer] CONSULTANT/retropharyngeal abscess Plan: P.o. antibiotics, dentistry follow-up Please refer to course for remaining clinical decision making, interpretation of labs/imaging results, and discussions with consultants and/or family members. Differential Diagnosis Differential Diagnoses: The differential diagnosis associated with the presentation includes As above External Record Review External record reviewed: Inpatient record, Office record, Outpatient record, Prior outpatient labs, Prior outpatient radiology, Primary care record and Outside ED record Tests considered The following testing was considered but not selected: As above Prescription Management I considered prescription management with: Pain Medication and Antibiotic Chronic Conditions Patient?s care impacted by: Other Social Determinants Patient?s care significantly limited by Social Determinants of Health including: Other Social Determinant of Health Discharge Plan Discharge Clinical Impression: Toothache Patient Disposition: Home, Self-Care Instructions: Toothache (ED) Additional Instructions: Augmentin as an antibiotic please take as prescribed until completion Take Tylenol and ibuprofen for pain Gargle with warm saltwater Follow up with your dentist If symptoms persist or worsen or area becomes increasingly swollen, you have fever, difficulty or inability to swallow return to the emergency department Prescriptions: New amoxicillin-pot clavulanate 875-125 mg tablet 1 tab PO BID 7 Days Qty: 14 0RF No Action acetaminophen-codeine 300-30 mg tablet 1 tab PO Q8H PRN (Reason: pain) Qty: 14 0RF ibuprofen 600 mg tablet 600 mg PO Q6H PRN (Reason: pain) Qty: 20 0RF oxycodone 5 mg tablet 5 mg PO Q6H PRN (Reason: pain) Qty: 12 0RF Rx Instructions: Partial Fill upon patient request. ibuprofen 600 mg tablet 600 mg PO Q6H PRN (Reason: fever or pain) Qty: 45 0RF acetaminophen [Tylenol Extra Strength] 500 mg tablet 500 mg PO Q6H PRN (Reason: pain) Qty: 30 0RF Referrals: Dangelo Acosta, SUMEET [Dentist, Dentistry] Physician,Unknown J [Primary Care Provider, Medical] Print Language: Chilean
[2025-10-01 17:34] VITALS: BP 129/70; PULSE 100; RESP 18; TEMP 37.1; O2SAT 99
== END 2025-10-01 17:36 | disposition home or self-care (01) ==
PROVIDERS: Emergency Provider Emergency Medicine
DX: K08.89 Other specified disorders of teeth and supporting structures (principal); R50.9 Fever, unspecified; J45.909 Unspecified asthma, uncomplicated
CPT/HCPCS: 99282; 99283